=== PATIENT | male | born 1980 | race Hispanic/Latino ===

== ENCOUNTER 2017-06-12 15:38 | Emergency (ER) | payer OTHER ==
[2017-06-12] MEDS ORDERED: ACETAMINOPHEN 500 MG TAB ONE (16:26)
[2017-06-12 17:30] LABS: Urine Blood NEGATIVE (NEG); Urine Glucose NEGATIVE (NEG); Urine Protein TRACE (NEG); Urine Specific Gravity 1.025 (1.005-1.030)
[2017-06-12 17:37] LABS: Urine Bacteria >50 /HPF (NONE SEEN); Urine RBC <5 /HPF (NONE SEEN)
[2017-06-12 17:38] LABS: Urine Culture Reflex Order NOT NEEDED; Urine Mucus LIGHT /HPF (NONE SEEN)
--- NOTE | 2017-06-12 17:59 | EDPHYS ---
Physician Documentation [facility] Name: Mary Carmen Lopes Age: 36 yrs Sex: Male : 1980 Arrival Date: 06/12/2017 Time: 15:42 Bed 9 Private MD: Bart Magallon HPI: 06/12 16:41 This 36 yrs old Male presents to ER via Ambulatory with complaints of Back cp Pain. 16:41 The patient presents with pain that is chronic, with no known mechanism of injury. The cp symptoms are located in the low back. Onset: The symptoms/episode began/occurred at an unknown time. and became worse today. The pain radiates to the right hip. Associated signs and symptoms: Pertinent negatives: abdominal pain, constipation, dysuria, fever, incontinence, numbness, urinary retention, weakness. Historical: - Allergies: 15:49 No Known Allergies; hj - Home Meds: 15:49 None [Active]; hj - PMHx: 15:49 None; hj - PSHx: 15:49 None; hj ROS: 16:35 Constitutional: Negative for body aches, chills, fever, poor PO intake. cp 16:35 Eyes: Negative for injury, pain, redness, and discharge. cp 16:35 ENT: Negative for injury, pain, and discharge, Neck: Negative for injury, pain, and cp swelling, Cardiovascular: Negative for chest pain, palpitations, and edema, Respiratory: Negative for shortness of breath, cough, wheezing, and pleuritic chest pain, Abdomen/GI: Negative for abdominal pain, nausea, vomiting, diarrhea, and constipation. 16:35 Back: Positive for pain at rest, pain with movement, of the low back area. 16:35 MS/extremity: Positive for pain, of the right leg, intermittent paresthesias, Negative for injury or acute deformity, decreased range of motion. 16:35 Skin: Negative for cellulitis, rash. cp 16:35 All other systems are negative. Exam: 16:40 Constitutional: The patient appears in no acute distress, alert, awake, non-toxic, well cp developed, well nourished. 16:40 Head/Face: Normocephalic, atraumatic. cp 16:40 Eyes: Periorbital structures: appear normal, Conjunctiva: normal, no exudate, no cp injection, Sclera: no appreciated abnormality, Lids and lashes: appear normal, bilaterally. 16:40 ENT: External ear(s): are unremarkable, Nose: is normal, Mouth: Lips: moist, Oral mucosa: pink and intact, moist, Posterior pharynx: is normal, airway is patent, no erythema, no exudate. 16:40 Chest/axilla: Inspection: normal. 16:40 Cardiovascular: Rate: normal, Rhythm: regular. 16:40 Respiratory: the patient does not display signs of respiratory distress, Respirations: normal, no use of accessory muscles, no retractions, no splinting, no tachypnea. 16:40 Abdomen/GI: Exam negative for discomfort, distension, guarding, Inspection: gravid appearance. 16:40 Back: pain, that is mild, of the low back area, ROM is painful, with all movement. 16:40 Skin: cellulitis, is not appreciated, no rash present. 16:40 Neuro: Orientation: to person, place \T\ time. Mentation: lucid, able to follow commands, Motor: moves all fours, strength is normal, Sensation: no obvious gross deficits. Vital Signs: 15:50 BP 125 / 82; Pulse 84; Resp 18; Temp 97.8(TE); Pulse Ox 100% on R/A; Weight 90.72 kg; hj Height 5 ft. 4 in. (162.56 cm); Pain 10/10; 15:50 Body Mass Index 34.33 (90.72 kg, 162.56 cm) hj MDM: 16:17 Patient medically screened. cp 17:00 Differential diagnosis: chronic back pain, ruptured disc, sciatica, bulging disc, cauda cp equina, spinal stenosis. 17:48 Data reviewed: vital signs, nurses notes, lab test result(s). cp 17:48 Counseling: I had a detailed discussion with the patient and/or guardian regarding: the cp historical points, exam findings, and any diagnostic results supporting the discharge/admit diagnosis, lab results, the need for outpatient follow up, an OB/Gyne specialist, to return to the emergency department if symptoms worsen or persist or if there are any questions or concerns that arise at home. Response to treatment: There is no appreciated change of the patient's symptoms at this time, and as a result, I will discharge patient. 06/12 16:18 Order name: Urine Microscopic Only; Complete Time: 17:47 cp 06/12 17:47 Interpretation: Normal except: UBACT >50; SQEPI 20-50. cp 06/12 17:14 Order name: Urine Dipstick--Ancillary (enter results) bd 06/12 16:18 Order name: Urine Dipstick-Ancillary (obtain specimen); Complete Time: 17:13 cp 06/12 16:24 Order name: Urine Test (obtain specimen); Complete Time: 17:13 cp 06/12 17:14 Order name: Urine Dipstick-Ancillary; Complete Time: 17:47 EDMS 06/12 16:50 Order name: FHT's; Complete Time: 17:34 cp Administered Medications: 16:29 Drug: Tylenol 1000 mg Route: PO; sg Disposition: 06/13 11:34 Co-signature as Attending Physician, Bart Benitez MD I agree with the assessment and sanjeev plan of care. Disposition: 06/12/17 17:59 Discharged to Home. Impression: Low back pain, Radiculopathy, lumbosacral region. - Condition is Stable. - Discharge Instructions: Back Pain, Adult, Lumbosacral Radiculopathy, Medicines During , Back Exercises, [id number]. - Medication Reconciliation Form, Thank You Letter, Antibiotic Education, Prescription Opioid Use form. - Follow up: Private Physician; When: 2 - 3 days; Reason: Recheck today's complaints. - Problem is an ongoing problem. - Symptoms are unchanged. Signatures: Dispatcher [employer] EDMS Iqra Olivares Steven, RN RN sg Anderson, Corey, MD MD cha Joaquin, Henry RN Bart Foster PA PA cp
--- NOTE | 2017-06-12 17:59 | ER ---
Nurse's Notes [facility] Name: Mary Carmen Lopes Age: 36 yrs Sex: Male : 1980 Arrival Date: 06/12/2017 Time: 15:42 Bed 9 Private MD: Diagnosis: Low back pain;Radiculopathy, lumbosacral region Presentation: 06/12 15:48 Presenting complaint: Patient states: triny been having this pain and its gets worse hj today, hx of disc problems; reports numbness and tingling of R leg; LMP- 02/06/17; 17 weeks ;. Transition of care: patient was not received from another setting of care. Onset of symptoms was June 12, 2017. Care prior to arrival: None. 15:48 Method Of Arrival: Ambulatory 15:48 Acuity: ROBERTA 4 hj Triage Assessment: 15:49 General: Appears in no apparent distress. uncomfortable, Behavior is calm, cooperative, hj appropriate for age. Pain: Complains of pain in left low back and right low back. Musculoskeletal: Circulation, motion, and sensation intact. Capillary refill < 3 seconds. Historical: - Allergies: 15:49 No Known Allergies; hj - Home Meds: 15:49 None [Active]; - PMHx: 15:49 None; - PSHx: 15:49 None; Assessment: 16:25 Reassessment: pt given urine speci cup and wipes, educated on clean catch procedure, sg instructed to use call light when ready to get a specimen, pt given call light, pt family remains at bedside. 17:34 Reassessment: FHT's 180 bpm. sg Vital Signs: 15:50 BP 125 / 82; Pulse 84; Resp 18; Temp 97.8(TE); Pulse Ox 100% on R/A; Weight 90.72 kg; hj Height 5 ft. 4 in. (162.56 cm); Pain 10/10; 15:50 Body Mass Index 34.33 (90.72 kg, 162.56 cm) ED Course: 15:42 Patient arrived in ED. mr 15:49 Triage completed. hj 15:50 Arm band placed on right wrist. hj 16:17 Bart Perry PA is PHCP. cp 16:17 Bart Benitez MD is Attending Physician. cp 16:19 Alli Croft, RN is Primary Nurse. 17:25 Urine Dipstick--Ancillary (enter results) Sent. 18:01 Urine collected: clean catch specimen, rayne colored. [facility] Administered Medications: 16:29 Drug: Tylenol 1000 mg Route: PO; Outcome: 17:59 Discharge ordered by . cp 18:18 Patient left the ED. bd Signatures: Iqra Olivares Steven, RN RN sg Rivera, Maria mr Joaquin, Henry, RN RN hj Page, Corey, PA PA cp Martinez, Maria [facility] Corrections: (The following items were deleted from the chart) 15:51 15:48 Presenting complaint: Patient states: triny been having this pain and its gets hj worse today, hx of disc problems; reports numbness and tingling of R leg; hj 15:52 15:50 Pulse 84bpm; Resp 18bpm; Pulse Ox 100% RA; Temp 97.8F Temporal; 90.72 kg; Height hj 5 ft. 4 in.; BMI: 34.3; Pain 10/10; hj
== END 2017-06-12 18:18 | disposition home or self-care (01) ==
LOC: ER 15:38
DX: M54.17 Radiculopathy, lumbosacral region (principal)
CPT/HCPCS: 81003; 81015; 99283